=== PATIENT | male | born 1975 | race Caucasian/White ===

== ENCOUNTER 2019-03-02 16:43 | Emergency (ER) | payer SELFPAY ==
[2019-03-02] MEDS ORDERED: EPINEPHrine 1 MG/ML SDV ONE (16:46)
[2019-03-02] MEDS ORDERED: methylPREDNISolone Sodium Succinate 125 MG/2 ML SDV ONE (16:47)
[2019-03-02] MEDS ORDERED: methylPREDNISolone Sodium Succinate 125 MG/2 ML SDV IVPUSH ONE (16:48)
[2019-03-02] MEDS ORDERED: Famotidine 20 MG/2 ML SDV IVPUSH ONE (16:48)
[2019-03-02] MEDS ORDERED: diphenhydrAMINE 50 MG/ML SDV ONE (16:48)
[2019-03-02] MEDS ORDERED: EPINEPHrine 1 MG/1 ML Amp SUBCUT ONE (16:49)
[2019-03-02] MEDS ORDERED: diphenhydrAMINE 50 MG/ML SDV IVPUSH ONE (16:52)
--- NOTE | 2019-03-02 16:58 | EDM.PDOC ---
ED HPI GENERAL MEDICAL PROBLEM - General Chief Complaint: Allergic Reaction Stated Complaint: BEE STING Time Seen by Provider: 03/02/19 16:48 Source of Information: Reports: Patient History Limitations: Reports: No Limitations - History of Present Illness INITIAL COMMENTS - FREE TEXT/NARRATIVE: 43-year-old male who is from [facility] currently working locally on a farm presents to the ED after being stung by a bee left lateral distal arm about 30 minutes prior to arrival.. He states he's had a fairly violent reaction to bee stings in the past when he lived in [facility]. Last sting was about 4 years ago. He states he developed generalized itching swelling of his throat and trouble breathing but not true anaphylaxis at that time.. He does have an EpiPen prescribed to him but did not have it with him. He presents with feeling of shortness of breath and pressure in his throat and developing hives right arm and generalized pruritus. He states he is allergic to penicillin and bees. He did drink quite a bit of Benadryl orally on the way to [employer]. Vital signs are stable at this time. No audible wheezing. She did purchase some liquid Benadryl in a [employer] and [employer] and drank the whole bottle. I believe a bottle contains 60 mls with 12.5 mg per 5 mils. Therefore he may take in as much is 150 mg orally. He does not appear to be fatigued from this at all. Onset: Today Duration: Minutes: Location: Reports: Chest (Feeling of chest heaviness and pressure in the throat. ), Generalized (Generalized erythema with development of hives antecubital fossa right arm.), Other Quality: Reports: Other Severity: Moderate (Generalized pruritus with development of hives) Improves with: Reports: None Worsens with: Reports: None Context: Reports: Other (Hymenoptera sting he believes a D.). Denies: Activity , Lifting, Sick Contact Associated Symptoms: Reports: Shortness of Breath. Denies: Confusion, Chest Pain, Cough, cough w sputum, Diaphoresis, Fever/Chills, Headaches, Loss of Appetite, Nausea/Vomiting, Rash, Seizure, Syncope, Weakness Treatments HAND ICER: Reports: Other (see below) (He drank quite a bit of oral Benadryl solution unclear how much.) - Related Data Allergies Allergy/AdvReac Type Severity Reaction Status Date / Time Penicillins Allergy Rash Verified 03/02/19 17:37 Home Meds: Home Meds predniSONE [Deltasone] 20 mg PO BID #6 tablet 03/02/19 [Rx] Past Medical History Immunologic History: Reports: Other (See Below) (Previous fairly violent reaction to bee sting in [facility] with shortness of breath, wheezing, generalized urticaria and hives without true anaphylaxis.) Social & Family History - Living Situation & Occupation Living situation: Reports: Single Occupation: Employed (Currently employed on a local farm. He has home in [facility].) ED ROS ALLERGIC REACTION - Review of Systems Review Of Systems: See Below Constitutional: Reports: No Symptoms HEENT: Reports: No Symptoms Respiratory: Reports: No Symptoms Cardiovascular: Reports: No Symptoms Endocrine: Reports: No Symptoms GI/Abdominal: Reports: No Symptoms : Reports: No Symptoms Musculoskeletal: Reports: No Symptoms Skin: Reports: No Symptoms Neurological: Reports: No Symptoms Psychiatric: Reports: No Symptoms Hematologic/Lymphatic: Reports: No Symptoms Immunologic: Reports: No Symptoms ED EXAM GENERAL NO PERIP PULSE - Physical Exam Exam: See Below Exam Limited By: No Limitations General Appearance: Alert, WD/WN, Anxious, Moderate Distress, Other (He does have hives and general erythema. Hives are in the right antecubital fossa and proximal right forearm. Erythematous site of sting left lateral distal arm. Area of erythema is approximately 15 cm x 10 cm at this time.) Eye Exam: Bilateral Eye: Normal Inspection Throat/Mouth: Normal Inspection, Normal Lips, Normal Teeth, Normal Oropharynx, Other (Uvula is perhaps very minimally swollen. There is no swelling of the floor the mouth. Tongue is normal. Phonation is normal.) Head: Atraumatic, Normocephalic Neck: Normal Inspection, Supple, Non-Tender, Full Range of Motion. No: Lymphadenopathy (L), Lymphadenopathy (R) Respiratory/Chest: No Respiratory Distress, Lungs Clear, Normal Breath Sounds, No Accessory Muscle Use, Respiratory Distress (Mild tachypnea partly due to anxiety.). No: Wheezing Cardiovascular: Normal Peripheral Pulses, Regular Rate, Rhythm, No Edema, No Gallop, No Murmur, No Rub GI/Abdominal: Normal Bowel Sounds, Soft, Non-Tender, No Organomegaly Extremities: Redness (Patch of erythema at site of sting left lateral distal arm measuring 15 cm x 9 cm at this time.) Neurological: Alert, Oriented, CN II-XII Intact, Normal Cognition Psychiatric: Normal Affect, Anxious Skin Exam: Warm, Dry, Intact, Erythema (Generalized mild erythema.), Other ( Urticaria developing right antecubital fossa and volar proximal forearm.) Course - Vital Signs Last Recorded V/S: Last Vital Signs Temp 37.4 C 03/02/19 18:28 Pulse 102 H 03/02/19 18:28 Resp 18 03/02/19 18:28 BP 137/87 03/02/19 18:28 Pulse Ox 96 03/02/19 18:28 - Orders/Labs/Meds Meds: Medications Discontinued Medications Generic Name Dose Route Start Last Admin Trade Name Freq PRN Reason Stop Dose Admin Diphenhydramine HCl Confirm 03/02/19 16:48 Benadryl Administered 03/02/19 16:49 Dose 50 mg .ROUTE .STK-MED ONE Diphenhydramine HCl 25 mg 03/02/19 16:52 03/02/19 17:58 Benadryl IVPUSH 03/02/19 16:53 25 mg ONETIME ONE Administration Epinephrine HCl Confirm 03/02/19 16:46 Adrenalin Administered 03/02/19 16:47 Dose 1 mg .ROUTE .STK-MED ONE Epinephrine HCl 0.3 mg 03/02/19 16:49 03/02/19 16:52 Adrenalin SUBCUT 03/02/19 16:50 0.3 mg ONETIME ONE Administration Famotidine 20 mg 03/02/19 16:48 03/02/19 16:54 Pepcid IVPUSH 03/02/19 16:49 20 mg ONETIME ONE Administration Sodium Chloride 1,000 mls @ 999 mls/hr 03/02/19 17:00 03/02/19 16:56 Normal Saline IV 999 mls/hr ASDIRECTED SAJAN Administration Methylprednisolone Sodium Succinate 125 mg 03/02/19 16:48 03/02/19 16:52 Solu-Medrol IVPUSH 03/02/19 16:49 125 mg ONETIME ONE Administration Methylprednisolone Sodium Succinate Confirm 03/02/19 16:47 Solu-Medrol Administered 03/02/19 16:48 Dose 125 mg .ROUTE .STK-MED ONE Prednisone 20 mg 03/02/19 18:11 03/02/19 18:24 Prednisone PO 03/02/19 18:12 20 mg ONETIME ONE Administration - Radiology Interpretation Free Text/Narrative:: 43-year-old male presents to the ED after suffering a bee sting to his left lateral distal arm proximal to 30 minutes prior to arrival in the ED. He is currently from [facility] and working on a farm locally. States she's had a previous significant reaction to bee sting in [facility] about 4 years ago. He states this time he felt the bee sting him. It then started to burn and hurt 5 minutes later and then he started to feel unwell with dizziness lightheadedness swelling of his lips and feeling of difficulty breathing and swallowing and then generalized erythema, pruritus and develop an of hives right antecubital fossa. Examination reveals minimal swelling of the uvula no swelling for the mouth. Lips perhaps are mildly swollen. His phonation and oropharynx is normal otherwise. Lungs were clear to auscultation percussion without wheezing. Blood pressure is normal. He is showing signs of generalized allergic reaction with development of hives right arm and forearm and generalized erythema and pruritus. Landed IV normal saline at open. Given slight mental 125 mg IV with Benadryl 25 mg IV and Pepcid 20 mg IV for acute allergic response. He will also be given epinephrine 0.3 mg subcutaneous. - Re-Assessments/Exams Free Text/Narrative Re-Assessment/Exam: 03/02/19 17:00: Patient is now sleeping from the medication. Easily aroused. Lungs are clear to auscultation percussion. Perhaps slightly increased swelling in the floor the mouth. Uvula is intact. Phonation is normal. The urticaria right anterior arm and is now gone. Itching is markedly improved. Will watch until about 1800 hrs. and if he's doing okay will be discharged at that time. 03/02/19 18:10 Complains of fatigue with a bit of a headache from the Benadryl. Itching is completely gone. No recurrence of hives. Edema at the site of hymenoptera sting left arm is also cleared. Lungs are clear. No signs of swelling of the uvula or throat at this time. He will be discharged to home. I will give him 20 mg prednisone tablet to take at bedtime tonight. Prescription written for 3 more days medication .He has medication with him from [facility]. Return if any further problems occur such as trouble swallowing or breathing. Departure - Departure Time of Disposition: 18:11 Disposition: Home, Self-Care 01 Condition: Fair Clinical Impression: Allergic reaction to bee sting Hymenoptera sting Qualifiers: Encounter type: initial encounter Injury intent: accidental or unintentional Qualified Code(s): T63.481A - Toxic effect of venom of other arthropod, accidental (unintentional), initial encounter - Discharge Information *PRESCRIPTION DRUG MONITORING PROGRAM REVIEWED*: Not Applicable *COPY OF PRESCRIPTION DRUG MONITORING REPORT IN PATIENT SHARONA: Not Applicable Prescriptions: predniSONE [Deltasone] 20 mg PO BID #6 tablet Instructions: Epinephrine Injection, Hives, [id number], Bee, Wasp, or Hornet Sting, Adult Referrals: PCP,Not In Area [Primary Care Provider] - Forms: ED Department Discharge Additional Instructions: Evaluation the emergency room today in regards to being stung by a bee left outer arm. Within 5 minutes this produced a generalized allergic response with generalized itching and erythema or redness of the skin. Associated development of hives particularly right arm and antecubital fossa. Associated healing of throat closure and some difficulty breathing. No wheezing appreciated on examination. You are taking a large volume of Benadryl liquid prior to coming to the ED. History of significant allergic reaction to bee stings in the past. In the emergency department she received intravenous fluids. He received medications Solu-Medrol 125 mg IV with Pepcid 20 mg IV and Benadryl 25 mg IV. He also received epinephrine subcutaneously 0.3 mg. Symptoms improved over the next 25 minutes. He will be given 20 mg of prednisone to take home and take at bedtime tonight. Prescription written for on his own tablets to be taken 20 mg twice daily for the next 3 days to prevent any recurrence of allergic reaction. May use Benadryl 50 mg by mouth every 6 hours as needed for recurrence of any symptoms such as itching or redness or hives. Return to the ED if you develop any troubles breathing or swallowing.
[2019-03-02] MEDS ORDERED: Sodium Chloride 0.9% 1,000 ML IV SCH (17:00)
[2019-03-02] MEDS ORDERED: predniSONE 20 MG Tab PO ONE (18:11)
== END 2019-03-02 18:35 | disposition home or self-care (01) ==
LOC: JD.ED 16:43
DX: T63.441A Toxic effect of venom of bees, accidental (unintentional), initial encounter (principal); T63.481A Toxic effect of venom of other arthropod, accidental (unintentional), initial encounter; Z88.0 Allergy status to penicillin
CPT/HCPCS: 96361; 96372; 96374; 96375; 99284; A9270; J0171; J1200; J2930; J3490; J7040